=== PATIENT | female | born 2000 | race Caucasian/White ===

== ENCOUNTER → 2022-09-01 11:29 | Outpatient (CLI) | payer OTHER, SELFPAY ==
--- NOTE | 2022-09-01 11:30 | DI.RAD.S_ITS ---
PROCEDURE: XR CHEST 2V INDICATIONS: Cough TECHNIQUE: 2 views of the chest were acquired. COMPARISON: [facility], , CHEST 2 VIEW, 09/02/2008, 14:42. FINDINGS: Surgical changes and devices: None. Lungs and pleura: Lungs are clear. No pleural effusions or pneumothorax. Mediastinum: Mediastinal contours are normal. Heart size is normal. Bones and chest wall: No suspicious bony abnormalities. Soft tissues appear unremarkable. IMPRESSION: No acute cardiopulmonary disease. Dictated by: Manju Mcclain M.D. on 09/01/2022 at 22:15 Approved by: Manju Mcclain M.D. on 09/01/2022 at 22:16
== END ==
PROVIDERS: PCP Family Medicine; Referring Provider Nurse Practitioner Family; Visit Provider Nurse Practitioner Family
DX: R05.9 Cough, unspecified (principal)
CPT/HCPCS: 71046